=== PATIENT | male | born 1955 | race African-American/Black ===

== ENCOUNTER 2022-12-13 12:22 | Emergency (ER) | payer OTHER ==
[~2022-12-13] VITALS: Ht 182.9 cm; Wt 95.0 kg
[2022-12-13 15:15] LABS: HEMATOCRIT. 36.3 % (42.0-52.0); HEMOGLOBIN. 11.8 g/dL (14.0-18.0); MEAN CORPUSCULAR HEMOGLOBIN 29.7 pg (28.0-32.0); MEAN CORPUSCULAR VOLUME 91.5 fL (80.0-94.0); MEAN PLATELET VOLUME 8.4 fl (7.4-10.4); PLATELET 171 x1000/uL (130-400); RED BLOOD CELL COUNT 3.97 mill/uL (4.7-6.1)
[2022-12-13 15:31] LABS: CLARITY URINE TURBID (CLEAR); COLOR URINE YELLOW (YELLOW); KETONES URINE TRACE (NEGATIVE); LEUKOCYTE ESTERASE URINE 2+ (NEGATIVE); NITRITE URINE NEGATIVE (NEGATIVE); OCCULT BLOOD URINE 3+ (NEGATIVE); PH URINE 5.5 (4.5-8.0); PROTEIN URINE 4+ (NEGATIVE); SPECIFIC GRAVITY URINE 1.018 (1.005-1.030); UROBILINOGEN URINE 0.2 E.U./dL (0.2-1.0)
[2022-12-13 16:06] LABS: CHLORIDE 117 mEq/L (98-107)
[2022-12-13 16:19] LABS: ETHANOL BLOOD < 10 mg/dL
[2022-12-13 20:04] LABS: PLATELET ESTIMATE NORMAL
[2022-12-13 23:00] VITALS: BP 157/96
== END 2022-12-14 00:13 | disposition short-term general hospital (02) ==
LOC: ER 12:26 → CANBEDREQ 16:46 → ER 12-14 00:13
DX: E16.2 Hypoglycemia, unspecified (principal); I10 Essential (primary) hypertension; E11.9 Type 2 diabetes mellitus without complications; I12.0 Hypertensive chronic kidney disease with stage 5 chronic kidney disease or end stage renal disease; E11.22 Type 2 diabetes mellitus with diabetic chronic kidney disease; N18.6 End stage renal disease; Z99.2 Dependence on renal dialysis; Z20.822 Contact with and (suspected) exposure to COVID-19
CPT/HCPCS: 36415; 71045; 80053; 80320; 81003; 82962; 83880; 84484; 85025; 87086; 87426; 93005; 99291; C9803; G0480

== ENCOUNTER 2024-04-27 15:31 | Inpatient (IN) | payer OTHER ==
[~2024-04-27] VITALS: Ht 185.4 cm; Wt 76.7 kg
[2024-04-27 16:12] LABS: BASOPHILS % 0.7 % (0.0-2.0); EOSINOPHILS % 0.1 % (0.0-5.0); HEMATOCRIT. 22.5 % (42.0-52.0); HEMOGLOBIN. 7.3 g/dL (14.0-18.0); LYMPHOCYTES % 11.7 % (20.0-50.0); MEAN CORPUSCULAR HEMOGLOBIN 27.9 pg (28.0-32.0); MEAN CORPUSCULAR HGB CONC 32.4 g/dL (31.0-37.0); MEAN CORPUSCULAR VOLUME 86.2 fL (80.0-94.0); MEAN PLATELET VOLUME 7.2 fl (7.4-10.4); MONOCYTES % 6.4 % (2.0-8.0); NEUTROPHILS % 81.1 % (40.0-76.0); PLATELET 85 x1000/uL (130-400); RED BLOOD CELL COUNT 2.61 mill/uL (4.7-6.1); WHITE BLOOD COUNT 3.8 x1000/uL (4.5-11.0)
[2024-04-27 16:18] LABS: CHLORIDE 111 mEq/L (98-107); POTASSIUM 5.7 mEq/L (3.5-5.1); SODIUM 146 mEq/L (136-145)
[2024-04-27 16:19] LABS: CALCIUM 10.4 mg/dL (8.7-10.4); CARBON DIOXIDE 14 mEq/L (21-32)
[2024-04-27 16:24] LABS: GLUCOSE 106 mg/dL (70-105)
[2024-04-27 16:26] LABS: ALANINE AMINOTRANSFERASE < 7 IU/L (10-49); ALBUMIN 4.3 g/dL (3.2-4.8); ASPARTATE AMINOTRANSFERASE 16 IU/L (<34); BILIRUBIN DIRECT 0.2 mg/dL (<=3.0)
[2024-04-27 16:27] LABS: BILIRUBIN TOTAL 0.4 mg/dL (0.1-1.0); PROTEIN TOTAL 6.5 g/dL (6.0-8.3)
[2024-04-27 16:41] LABS: CREATININE 28.8 mg/dL (0.6-1.3); ETHANOL BLOOD < 10 mg/dL (<10); TROPONIN I HIGH SENSITIVITY 149 ng/L (3.0-53); UREA NITROGEN BLOOD 195 mg/dL (9-23)
[2024-04-27] MEDS: CALCIUM CHLORIDE 1GM/10ML SYR IV ONE (17:11)
[2024-04-27 17:29] VITALS: PULSE 84; RESP 20; O2SAT 98
[2024-04-27] MEDS: ALBUTEROL (0.083%) 2.5MG/3ML NEB HHN ONE (17:29)
[2024-04-27] MEDS: LABETALOL 5MG/ML 4ML INJ IV ONE ×2 (17:45→18:28)
[2024-04-27 19:00] LABS: TROPONIN I HIGH SENSITIVITY 166 ng/L (3.0-53)
[2024-04-27] MEDS ORDERED: MANNITOL 12.5G (25%) VIAL 50ML IV NR (19:15)
[2024-04-27] MEDS ORDERED: ZOLPIDEM TARTRATE 5MG TABLET PO PRN (19:45)
[2024-04-27] MEDS ORDERED: NIFEDIPINE XL 60MG TAB PO SCH (19:45)
[2024-04-27] MEDS ORDERED: DOCUSATE SODIUM 100MG CAPSULE PO PRN (19:45)
[2024-04-27] MEDS ORDERED: IPRATROPIUM/ALBUTEROL 0.5-3(2.5)MG/3ML NEB NEB PRN (19:45)
[2024-04-27] MEDS ORDERED: ACETAMINOPHEN 325MG TABLET PO PRN ×2 (19:45)
[2024-04-27] MEDS ORDERED: MAGNESIUM/ALUMINUM HYDROXIDE/SIMETHICONE 30ML UDC PO PRN (19:45)
[2024-04-27] MEDS ORDERED: GUAIFENESIN 200MG/10ML SUGAR FREE UDC PO PRN (19:45)
[2024-04-27] MEDS ORDERED: ONDANSETRON HCL 4MG/2ML INJ IV PRN (19:45)
[2024-04-27] MEDS ORDERED: ENOXAPARIN 40MG/0.4ML SYR SUBCUT SCH (19:45)
[2024-04-27] MEDS: CLONIDINE 0.1MG TABLET PO PRN (20:34)
[2024-04-27] MEDS ORDERED: FAMOTIDINE 20MG TABLET PO SCH (21:00)
[2024-04-27 21:08] LABS: T4 FREE 0.63 ng/dL (0.89-1.76)
[2024-04-27 21:09] LABS: THYROID STIMULATING HORMONE 1.77 uIU/mL (0.55-4.78)
[2024-04-27] MEDS: NIFEDIPINE XL 60MG TAB PO SCH (21:12)
[2024-04-27 21:13] LABS: VITAMIN B12 SERUM 638 pg/mL (211-911)
[2024-04-27] MEDS: FAMOTIDINE 20MG TABLET PO SCH (21:13)
[2024-04-27] MEDS: ENOXAPARIN 30MG/0.3ML SYR SUBCUT SCH (21:14)
[2024-04-27 22:05] VITALS: BP 202/99; PULSE 76; RESP 19; TEMP 36.3918; O2SAT 100
[2024-04-27 22:10] VITALS: BP 174/67; PULSE 78; RESP 18; TEMP 36.3918; O2SAT 100
[2024-04-27 22:40] VITALS: BP 148/148; PULSE 7; RESP 18
[2024-04-27 23:10] VITALS: BP 144/81; PULSE 75; RESP 18
[2024-04-27] MEDS: HYDRALAZINE HCL 50MG TABLET PO SCH (23:27)
[2024-04-27] MEDS: NITROGLYCERIN OINT 1GM/INCH UDPKT TD SCH (23:28)
[2024-04-27 23:40] VITALS: BP 100/58; PULSE 64; RESP 18
[2024-04-28] VITALS (19 sets, daily range): BP systolic 93–205; BP diastolic 41–94; PULSE 62–82; RESP 16–20; TEMP 36.3918–36.55848; O2SAT 98–100
[2024-04-28 07:01] LABS: BASOPHILS % 0.5 % (0.0-2.0); EOSINOPHILS % 0.2 % (0.0-5.0); HEMATOCRIT. 22.8 % (42.0-52.0); HEMOGLOBIN. 7.5 g/dL (14.0-18.0); LYMPHOCYTES % 17.1 % (20.0-50.0); MEAN CORPUSCULAR HEMOGLOBIN 28.2 pg (28.0-32.0); MEAN CORPUSCULAR HGB CONC 32.8 g/dL (31.0-37.0); MEAN CORPUSCULAR VOLUME 85.8 fL (80.0-94.0); MEAN PLATELET VOLUME 7.7 fl (7.4-10.4); MONOCYTES % 6.1 % (2.0-8.0); NEUTROPHILS % 76.1 % (40.0-76.0); PLATELET 82 x1000/uL (130-400); RED BLOOD CELL COUNT 2.65 mill/uL (4.7-6.1); RED CELL DISTRIBUTION WIDTH 14.1 % (11.6-14.6); WHITE BLOOD COUNT 3.3 x1000/uL (4.5-11.0)
[2024-04-28 07:19] LABS: CHLORIDE 105 mEq/L (98-107); POTASSIUM 3.9 mEq/L (3.5-5.1); SODIUM 142 mEq/L (136-145)
[2024-04-28 07:21] LABS: CALCIUM 10.1 mg/dL (8.7-10.4); CARBON DIOXIDE 19 mEq/L (21-32)
[2024-04-28 07:26] LABS: CREATINE KINASE MB FRACTION 2.6 ng/mL (0.5-3.6); GLUCOSE 88 mg/dL (70-105); UREA NITROGEN BLOOD 92 mg/dL (9-23)
[2024-04-28 07:28] LABS: ALANINE AMINOTRANSFERASE 8 IU/L (10-49); ALBUMIN 4.3 g/dL (3.2-4.8); ASPARTATE AMINOTRANSFERASE 19 IU/L (<34); BILIRUBIN TOTAL 0.5 mg/dL (0.1-1.0); CREATINE KINASE 256 IU/L (46-171); PROTEIN TOTAL 6.7 g/dL (6.0-8.3)
[2024-04-28 07:55] LABS: HEPATITIS B SURFACE ANTIGEN NEGATIVE (Negative)
[2024-04-28 08:16] LABS: HEPATITIS A AB IGM NEGATIVE (Negative); HEPATITIS B CORE AB IGM NEGATIVE (Negative)
[2024-04-28 08:17] LABS: HEPATITIS C AB NON REACTIVE (Neg) (Negative)
[2024-04-28 08:36] LABS: CREATININE 15.5 mg/dL (0.6-1.3)
[2024-04-28 08:39] LABS: TROPONIN I HIGH SENSITIVITY 215 ng/L (3.0-53)
[2024-04-28 08:52] LABS: PHOSPHORUS 6.4 mg/dL (2.5-4.9)
== END 2024-04-28 19:10 | disposition short-term general hospital (02) | DRG 640 ==
LOC: ER 15:31 → 8WST 18:07 → EDBEDREQ 18:10 → EDBEDREQTM 18:10
PROVIDERS: ADMIT Internal Medicine; ATTEND Internal Medicine
PROC: 5A1D70Z Performance of Urinary Filtration, Intermittent, Less than 6 Hours Per Day (ICD-10-PCS; principal; 2024-04-27)
PROC: 5A1D70Z Performance of Urinary Filtration, Intermittent, Less than 6 Hours Per Day (ICD-10-PCS; 2024-04-28)
DX: E87.5 Hyperkalemia (principal); I21.4 Non-ST elevation (NSTEMI) myocardial infarction; N18.6 End stage renal disease; G93.40 Encephalopathy, unspecified; I12.0 Hypertensive chronic kidney disease with stage 5 chronic kidney disease or end stage renal disease; D64.9 Anemia, unspecified; E11.22 Type 2 diabetes mellitus with diabetic chronic kidney disease; E11.51 Type 2 diabetes mellitus with diabetic peripheral angiopathy without gangrene; E87.70 Fluid overload, unspecified; I16.0 Hypertensive urgency; Z89.511 Acquired absence of right leg below knee; Z91.158 Patient's noncompliance with renal dialysis for other reason; Z99.2 Dependence on renal dialysis; Z88.0 Allergy status to penicillin
CPT/HCPCS: 36415; 71045; 80048; 80053; 80061; 80076; 80320; 82550; 82553; 82607; 83036; 83735; 83880; 84100; 84439; 84443; 84484; 85025; 86705; 86709; 87340; 90935; 93005; 93306; 93970; 99291; J1650; J2150; J3490; G0480